=== PATIENT | male | born 1995 | race Two or more races ===

== ENCOUNTER 2017-09-27 09:09 | Emergency (ER) | payer BC ==
[2017-09-27 09:17] VITALS: BP 117/77
[2017-09-27] MEDS ORDERED: KETOROLAC TROMETHAMINE INJ/PF 30 MG/1 ML SDV IM ONE (10:05)
--- NOTE | 2017-09-27 10:10 | ER Document Report ---
HPI - HPI Pain Level: 4 Notes: Patient is a 22-year-old male who presents the ED complaining of a mild headache that begins in the back of his head, and a lump underneath his right jaw 1 day. Patient states that he has not taken any medications for his symptoms. Patient states that overall his headache has improved since this morning. He denies any recent illness. Denies any significant medical history. Denies any drug allergies. Patient denies any smoking or IV drug use. No other concerns or complaints. He still eating and drinking without difficulties. Denies any fever, head injury, neck pain, changes in vision/ speech/mentation/hearing, URI, sore throat, chest pain, palpitations, syncope, cough, shortness of breath, wheeze, dyspnea, abdominal pain, nausea/vomiting/ diarrhea, urinary retention, dysuria, hematuria, back pain, joint pain, or rash. - ROS Notes: REVIEW OF SYSTEMS: CONSTITUTIONAL : Denies fever, chills, or sweats. Denies recent illness. EENT: Denies eye, ear, throat, or mouth pain or symptoms. Denies nasal or sinus congestion or discharge. Denies throat, tongue, or mouth swelling or difficulty swallowing. CARDIOVASCULAR: Denies chest pain. Denies palpitations or racing or irregular heart beat. Denies ankle edema. RESPIRATORY: Denies cough, cold, or chest congestion. Denies shortness of breath, difficulty breathing, or wheezing. GASTROINTESTINAL: Denies abdominal pain or distention. Denies nausea, vomiting , or diarrhea. Denies blood in vomitus, stools, or per rectum. Denies black, tarry stools. Denies constipation. GENITOURINARY: Denies difficulty urinating, painful urination, burning, frequency, blood in urine, or discharge. MUSCULOSKELETAL: Denies back or neck pain or stiffness. Denies joint pain or swelling. SKIN: Denies rash, lesions or sores. NEUROLOGICAL: see hpi.Denies confusion or altered mental status. Denies passing out or loss of consciousness. Denies dizziness or lightheadedness. Denies weakness or paralysis or loss of use of either side. Denies problems with gait or speech. Denies sensory loss, numbness, or tingling. Denies seizures. ALL OTHER SYSTEMS REVIEWED AND NEGATIVE. Dictation was performed using [employer] recognition software - DERM Skin Color: Normal Past Medical History - Social History Smoking Status: Unknown if Ever Smoked Chew tobacco use (# tins/day): No Frequency of alcohol use: Social Drug Abuse: None Family History: Reviewed & Not Pertinent Patient has suicidal ideation: No Patient has homicidal ideation: No Renal/ Medical History: Denies: Hx Peritoneal Dialysis Surgical Hx: Negative Vertical Provider Document - CONSTITUTIONAL Agree With Documented VS: Yes Notes: PHYSICAL EXAMINATION: GENERAL: Well-appearing, well-nourished and in no acute distress. A&Ox4 HEAD: Atraumatic, normocephalic. Non-tender. EYES: Pupils equal round and reactive to light, extraocular movements intact, sclera anicteric, conjunctiva are normal. No raccoon eyes/entrapment ENT: EAC clear b/l. TM's intact b/l without erythema, fluid, or perforation. Nares patent and without discharge. oropharynx clear without exudates. No tonsilar hypertrophy or erythema. Moist mucous membranes. No sinus tenderness. No hemotympanum/CSF discharge. NECK: Normal range of motion, supple with one small mobile minimally tender submandibular lymphadenopathy. No rigidity. No midline tenderness. Spurling negative. LUNGS: Breath sounds clear to auscultation bilaterally and equal. No wheezes rales or rhonchi. HEART: Regular rate and rhythm without murmurs, rubs, gallops. Musculoskeletal: Ext b/l: FROM to passive/active. Strength 5+/5. No deficits noted. No bony tenderness of extremities. Back: FROM to passive/active. Strength 5+/5. No vertebral point tenderness, stepoffs, or deformities. No other bony tenderness or ecchymosis. Extremities: No cyanosis, clubbing, or edema b/l. Peripheral pulses 2+. Capillary refill less than 2 seconds. NEUROLOGICAL: MMSE intact. Cranial nerves grossly intact. Normal speech, normal gait. Normal sensory, motor exams. Reflexes 2+ b/l. ELENA's negative. Pronator drift negative. Heel/child, finger/nose wnl. Walking on heels/toes and heel to toe wnl. PSYCH: Normal mood, normal affect. SKIN: + acne noted to the rt cheek, no superimposed infection (1-2 lesions noted that are approx 3mm). No abscess, streaks, or purulence. - INFECTION CONTROL TRAVEL OUTSIDE OF THE [place] IN LAST 30 DAYS: No - RESPIRATORY O2 Sat by Pulse Oximetry: 97 Course - Re-evaluation Re-evalutation: 09/27/17 10:09 Patient is an afebrile, well-hydrated, 22-year-old male who presents the ED with a headache and submandibular lymph node, suspect association with his acne. Vitals are stable. PE is otherwise unremarkable for any focal neurological deficits. Patient's headache has improved without any need for medication. I will give him a shot of Toradol prior to discharge. I will send him home with a prescription for naproxen that he may take as directed. Advised patient to keep his face clean and he may use [id number] acne medication. He is to monitor the lymph node closely and seek medical attention if it does not go away or if he gets worse. Low suspicion for any acute glaucoma, temporal arteritis, meningitis, intracranial hemorrhage, ischemic stroke, or fracture at this time. Patient is aware that his condition can change from initial presentation and that he needs to monitor symptoms closely for any acute changes. Conservative measures otherwise for symptoms. Recheck with your PCM this week. Return to the ED with any worsening/concerning symptoms otherwise as reviewed in discharge. Patient is in agreement. - Vital Signs Vital signs: Temp Pulse Resp BP Pulse Ox 98.7 F 71 16 117/77 97 09/27/17 09:15 09/27/17 09:15 09/27/17 09:15 09/27/17 09:15 09/27/17 09:15 Discharge - Discharge Clinical Impression: Submandibular lymphadenopathy Headache Qualifiers: Headache type: unspecified Headache chronicity pattern: acute headache Intractability: not intractable Qualified Code(s): R51 - Headache Condition: Stable Disposition: HOME, SELF-CARE Instructions: Headache ([facility]), Toradol Injection ([facility]) Additional Instructions: Rest, Ice Tylenol/ibuprofen as needed Light stretches daily Strength exercises as able Moist heat and massage may help F/u with your PCP in 3-5 days for a recheck Consider consult(s) with Orthopedics/physical therapy for ongoing/worsening symptoms Return to the ED with any worsening symptoms and/or development of fever, headache, changes in vision/speech/mentation, chest pain, palpitations, syncope , shortness of breath, trouble breathing, abdominal pain, n/v/d, blood in stool/ urine, loss of control of bowel/bladder, urinary retention, muscle weakness/ paralysis, saddle anesthesia, numbness/tingling, abscess, red streaks, purulent discharge, or other worsening symptoms that are concerning to you. Prescriptions: Naproxen 500 mg PO BID PRN #30 tablet PRN Reason: Referrals: [facility] [Provider Group] - Follow up as needed [facility] [Provider Group] - Follow up as needed
== END 2017-09-27 10:20 | disposition home or self-care (01) ==
LOC: ER 09:09
DX: R59.1 Generalized enlarged lymph nodes (principal); R51 Headache
CPT/HCPCS: 99283; 96372; J1885

== ENCOUNTER 2017-09-27 14:13 | Emergency (ER) | payer BC ==
--- NOTE | 2017-09-27 15:17 | ER Document Report ---
ED General - General Chief Complaint: Swelling Stated Complaint: SWOLLEN EYELID Time Seen by Provider: 09/27/17 15:12 Notes: Patient states he received a shot here earlier for headache. He states he went home his girlfriend told me had some swelling about the right eye. He denies any pain or any sensations that are abnormal around the right eye. He states he did not notice swelling. Patient states that he has no change of vision. No itching of the eye or discharge or tearing. No trouble breathing or swallowing. He denies any other itching or rashes anywhere on his body. Symptoms are mild. They are constant. Nothing makes it better or worse. TRAVEL OUTSIDE OF THE [place] IN LAST 30 DAYS: No - Related Data Allergies/Adverse Reactions: No Known Allergies Allergy (Verified 09/27/17 14:20) Past Medical History - General Information source: Patient - Social History Smoking Status: Current Every Day Smoker Frequency of alcohol use: Social Drug Abuse: None Family History: Reviewed & Not Pertinent Patient has suicidal ideation: No Patient has homicidal ideation: No Renal/ Medical History: Denies: Hx Peritoneal Dialysis Review of Systems - Review of Systems Constitutional: denies: Chills, Fever EENT: denies: Eye pain, Eye discharge, Blurred vision, Tearing, Double vision Respiratory: denies: Cough, Short of breath Physical Exam - Vital signs Vitals: Temp Pulse Resp BP Pulse Ox 98.6 F 75 18 116/79 99 09/27/17 14:22 09/27/17 14:22 09/27/17 14:22 09/27/17 14:22 09/27/17 14:22 Interpretation: Normal - General General appearance: Appears well, Alert In distress: None - HEENT Head: Normocephalic, Atraumatic Eyes: Other - pt has mild non tender swelling to right lower eyelid Conjunctiva: Normal Cornea: Normal Extraocular movements intact: Yes Eyelashes: Normal Pupils: PERRL Course - Vital Signs Vital signs: Temp Pulse Resp BP Pulse Ox 98.6 F 75 18 116/79 99 09/27/17 14:22 09/27/17 14:22 09/27/17 14:22 09/27/17 14:22 09/27/17 14:22 Discharge - Discharge Clinical Impression: Allergic reaction Qualifiers: Encounter type: initial encounter Qualified Code(s): T78.40XA - Allergy, unspecified, initial encounter Condition: Stable Disposition: HOME, SELF-CARE Instructions: Acute Allergic Reaction ([facility]) Additional Instructions: Please follow-up with your primary care physician as soon as possible for a recheck. Prescriptions: Hydroxyzine Pamoate [Vistaril 25 mg Capsule] 25 mg PO Q8 PRN #10 capsule PRN Reason: Itching Prednisone [Deltasone 20 mg Tablet] 3 tab PO DAILY 3 Days #9 tablet
[2017-09-27 15:31] VITALS: BP 108/56
== END 2017-09-27 15:33 | disposition home or self-care (01) ==
LOC: ER 14:13
DX: T78.40XA Allergy, unspecified, initial encounter (principal); R22.0 Localized swelling, mass and lump, head; X58.XXXA Exposure to other specified factors, initial encounter; F17.200 Nicotine dependence, unspecified, uncomplicated
CPT/HCPCS: 99283

== ENCOUNTER 2017-10-03 17:56 | Emergency (ER) | payer BC ==
[2017-10-03] MEDS ORDERED: DEXAMETHASONE 4 MG TABLET PO ONE (19:39)
[2017-10-03] MEDS ORDERED: OXYCODONE-ACETAMINOPHEN 5-325 MG TABLET PO ONE (19:40)
[2017-10-03] MEDS ORDERED: IBUPROFEN 800 MG TABLET PO ONE (19:40)
[2017-10-03] MEDS ORDERED: CLINDAMYCIN HCL 150 MG CAPSULE PO ONE (19:40)
--- NOTE | 2017-10-03 19:42 | ER Document Report ---
HPI - HPI Patient complains to provider of: Lymph node swelling Onset: Last week Onset/Duration: Persistent Quality of pain: Achy Pain Level: 4 Context: Patient complains of swelling under the right side of his jaw for the past 6 days. Patient was here for this previously and was given steroids. Mother states that the swelling initially went down although then it started to return today after he gone off of the steroid medication. Patient denies any fever. Patient denies any dental pain. Associated Symptoms: Other - Right lymph node swelling. denies: Fever Exacerbated by: Denies Relieved by: Denies Similar symptoms previously: No Recently seen / treated by doctor: Yes - ROS ROS below otherwise negative: Yes Systems Reviewed and Negative: Yes All other systems reviewed and negative - CONSTITUTIONAL Constitutional: DENIES: Fever, Chills - EENT EENT: DENIES: Sore Throat, Ear Pain, Eye problems - NEURO Neurology: DENIES: Headache - CARDIOVASCULAR Cardiovascular: DENIES: Chest pain - RESPIRATORY Respiratory: DENIES: Trouble Breathing, Coughing - GASTROINTESTINAL Gastrointestinal: DENIES: Patient vomiting - MUSCULOSKELETAL Musculoskeletal: DENIES: Extremity pain, Neck Pain - DERM Skin Color: Normal Skin Problems: None Past Medical History - General Information source: Patient, Parent - Social History Smoking Status: Unknown if Ever Smoked Frequency of alcohol use: Occasional Drug Abuse: None Occupation: None Lives with: Family Family History: Reviewed & Not Pertinent Patient has suicidal ideation: No Patient has homicidal ideation: No - Medical History Medical History: Negative Renal/ Medical History: Denies: Hx Peritoneal Dialysis Surgical Hx: Negative Vertical Provider Document - CONSTITUTIONAL Agree With Documented VS: Yes Exam Limitations: No Limitations General Appearance: WD/WN, No Apparent Distress - INFECTION CONTROL TRAVEL OUTSIDE OF THE [place] IN LAST 30 DAYS: No - HEENT HEENT: Atraumatic, Normocephalic. negative: Pharyngeal Exudate, Pharyngeal Tenderness, Pharyngeal Erythema, Tympanic Membrane Red, Tympanic Membrane Bulging Notes: No potential airway compromise. No dental abscess no tender or decayed teeth to right lower jaw. - NECK Neck: Lymphadenopathy-Right - Right submandibular lymphadenopathy - RESPIRATORY Respiratory: Breath Sounds Normal, No Respiratory Distress O2 Sat by Pulse Oximetry: 100 - CARDIOVASCULAR Cardiovascular: Regular Rate, Regular Rhythm - BACK Back: Normal Inspection - MUSCULOSKELETAL/EXTREMETIES Musculoskeletal/Extremeties: MAEW - NEURO Level of Consciousness: Awake, Alert, Appropriate Motor/Sensory: No Motor Deficit - DERM Integumentary: Warm, Dry. negative: Abscess Notes: Patient with resolving nodular acne lesion to right cheek Course - Re-evaluation Re-evalutation: 10/03/17 19:[address] Friend regarding patient presentation and antibiotic choice. Agrees with plan to discharge patient home with clindamycin. Does recommend outpatient follow-up with a surgeon for possible biopsy of lymph node. - Vital Signs Vital signs: Temp Pulse Resp BP Pulse Ox 98.8 F 83 18 117/71 100 10/03/17 18:12 10/03/17 18:12 10/03/17 18:12 10/03/17 18:12 10/03/17 18:12 Discharge - Discharge Clinical Impression: Submandibular lymphadenopathy Condition: Stable Disposition: HOME, SELF-CARE Instructions: Clindamycin ([facility]), Growth or Mass, Pending Workup ([facility]), Oral Narcotic Medication ([facility]), Steroid Medication Additional Instructions: Return immediately for any new or worsening symptoms Followup with your primary care provider, call tomorrow to make a followup appointment Follow-up with a ear nose and throat doctor for further evaluation. You may possibly need a biopsy of this lymph node, to rule out any other problems such as cancer. Prescriptions: Clindamycin HCl [Cleocin Hcl] 300 mg PO QID #28 capsule Naproxen [Naprosyn 250 Nmg Tablet] 1 tab PO BID #14 tablet Oxycodone HCl/Acetaminophen [Percocet 5-325 mg Tablet] 1 tab PO ASDIR PRN #15 tablet PRN Reason: Referrals: [facility] [Provider Group] - Follow up tomorrow
[2017-10-03 20:02] VITALS: BP 128/87
== END 2017-10-03 20:00 | disposition home or self-care (01) ==
LOC: ER 17:56
DX: R59.1 Generalized enlarged lymph nodes (principal)
CPT/HCPCS: 99283

== ENCOUNTER 2018-06-28 12:44 | Emergency (ER) | payer SELFPAY ==
[2018-06-28 13:31] VITALS: BP 116/66
[2018-06-28] MEDS ORDERED: IBUPROFEN 800 MG TABLET PO ONE (13:54)
--- NOTE | 2018-06-28 13:54 | ER Document Report ---
HPI - HPI Patient complains to provider of: Hand injury Onset: Yesterday Onset/Duration: Sudden Quality of pain: Achy Pain Level: 1 Context: Patient states that he punched a window yesterday injuring his right hand. Patient complains of right hand pain and swelling. Patient is right-hand dominant. Patient states that around 11 AM today he had an episode of dizziness which she describes feeling off balance. Patient denies any chest pain headache nausea or vomiting. Patient states that dizziness symptoms only lasted for about 15 minutes and then resolved. Patient presently denies any dizzy complaints at this time. Associated Symptoms: Other - Right hand pain. denies: Chest pain, Headache, Nausea, Vomiting Exacerbated by: Movement Relieved by: Denies Similar symptoms previously: No Recently seen / treated by doctor: No - ROS ROS below otherwise negative: Yes Systems Reviewed and Negative: Yes All other systems reviewed and negative - NEURO Neurology: REPORTS: Dizzinesss / Vertigo. DENIES: Headache, Weakness - MUSCULOSKELETAL Musculoskeletal: REPORTS: Extremity pain, Swelling - DERM Skin Color: Normal Skin Problems: None Past Medical History - General Information source: Patient - Social History Smoking Status: Current Every Day Smoker Chew tobacco use (# tins/day): No Smoking Education Provided: Yes Frequency of alcohol use: Social Drug Abuse: Marijuana Occupation: Foodservice Family History: Reviewed & Not Pertinent Patient has suicidal ideation: No Patient has homicidal ideation: No - Medical History Medical History: Negative Renal/ Medical History: Denies: Hx Peritoneal Dialysis Surgical Hx: Negative Vertical Provider Document - CONSTITUTIONAL Agree With Documented VS: Yes Exam Limitations: No Limitations General Appearance: WD/WN, No Apparent Distress - INFECTION CONTROL TRAVEL OUTSIDE OF THE [place] IN LAST 30 DAYS: No - HEENT HEENT: Atraumatic, Normal ENT Exam, Normocephalic - NECK Neck: Normal Inspection, Supple - RESPIRATORY Respiratory: Breath Sounds Normal, No Respiratory Distress - CARDIOVASCULAR Cardiovascular: Regular Rate, Regular Rhythm, No Murmur Pulses: Normal: Radial - BACK Back: Normal Inspection - MUSCULOSKELETAL/EXTREMETIES Musculoskeletal/Extremeties: SANTOS NEFF - NEURO Level of Consciousness: Awake, Alert, Appropriate Motor/Sensory: No Motor Deficit - DERM Integumentary: Warm, Dry, No Rash Course - Vital Signs Vital signs: Temp Pulse Resp BP Pulse Ox 98.3 F 65 16 116/66 99 06/28/18 13:27 06/28/18 13:27 06/28/18 13:27 06/28/18 13:27 06/28/18 13:27 - Diagnostic Test Radiology reviewed: Image reviewed, Reports reviewed Procedures - Immobilization Right Hand Pre-Proc Neuro Vasc Exam: Normal Immobilizer type: Ulnar Performed by: PCT Post-Proc Neuro Vasc Exam: Normal Alignment checked and good: Yes Discharge - Discharge Clinical Impression: Episode of dizziness Right hand fracture Qualifiers: Encounter type: initial encounter Fracture type: closed Qualified Code(s): S62.91XA - Unspecified fracture of right wrist and hand, initial encounter for closed fracture Condition: Stable Disposition: HOME, SELF-CARE Instructions: Fractured Fifth Metacarpal ([facility]), Ice & Elevation ([facility]), Splint Precautions ([facility]), Vertigo ([facility]) Additional Instructions: Return immediately for any new or worsening symptoms Followup with your primary care provider, call tomorrow to make a followup appointment Follow-up with orthopedics for further evaluation, call today for an appointment Prescriptions: Hydrocodone/Acetaminophen [Romeo 5-325 Tablet] 1 each PO Q4 PRN #12 tablet PRN Reason: Meclizine HCl [Antivert 25 mg Tablet] 25 mg PO ASDIR PRN #15 tablet PRN Reason: Forms: Smoking Cessation Education, Return to Work Referrals: [facility] [Provider Group] - Follow up in 3-5 days
--- NOTE | 2018-06-28 14:35 | RADIOLOGY REPORT (SQ) ---
EXAM DESCRIPTION: HAND RIGHT 3 VIEWS COMPLETED DATE/TIME: 06/28/2018 2:11 pm REASON FOR STUDY: punched window COMPARISON: None. EXAM PARAMETERS: NUMBER OF VIEWS: Three views. TECHNIQUE: AP, lateral and oblique radiographic images acquired of the right hand. LIMITATIONS: None. FINDINGS: MINERALIZATION: Normal. BONES: Comminuted fracture of the head of the 5th metacarpal with about 30 of dorsal angulation. JOINTS: No effusions. SOFT TISSUES: No soft tissue swelling. No foreign body. OTHER: No other significant finding. IMPRESSION: Fracture of the distal 5th metacarpal. TECHNICAL DOCUMENTATION: JOB ID: [id number] [employer]- All Rights Reserved Reading location - IP/workstation name: [email or web address]
--- NOTE | 2018-06-28 18:39 | EKG REPORT ---
SEVERITY:- ABNORMAL ECG - SINUS BRADYCARDIA NONSPECIFIC ST-T INVERSION INFERIOR LEADS. : Confirmed by: Armando Rice MD 28-Jun-2018 18:38:05
== END 2018-06-28 14:58 | disposition home or self-care (01) ==
LOC: ER 12:44
DX: S62.396A Other fracture of fifth metacarpal bone, right hand, initial encounter for closed fracture (principal); W22.8XXA Striking against or struck by other objects, initial encounter; R42 Dizziness and giddiness; F17.200 Nicotine dependence, unspecified, uncomplicated; F12.10 Cannabis abuse, uncomplicated
CPT/HCPCS: 93005; 93010; 99284

== ENCOUNTER 2018-10-08 20:14 | Emergency (ER) | payer SELFPAY ==
[2018-10-08] MEDS ORDERED: ACETAMINOPHEN 325 MG TABLET PO ONE (20:17)
--- NOTE | 2018-10-08 21:02 | RADIOLOGY REPORT (SQ) ---
EXAM DESCRIPTION: HAND LEFT 3 VIEWS COMPLETED DATE/TIME: 10/08/2018 8:42 pm REASON FOR STUDY: laceration COMPARISON: None. EXAM PARAMETERS: NUMBER OF VIEWS: Three views. TECHNIQUE: AP, lateral and oblique radiographic images acquired of the left hand. LIMITATIONS: None. FINDINGS: MINERALIZATION: Normal. BONES: No acute fracture or dislocation. No worrisome bone lesions. JOINTS: No effusions. SOFT TISSUES: No soft tissue swelling. No foreign body. OTHER: No other significant finding. IMPRESSION: No evidence of retained radiopaque foreign body or osseous injury. TECHNICAL DOCUMENTATION: JOB ID: [id number] [employer]- All Rights Reserved Reading location - IP/workstation name: [email or web address]
[2018-10-08] MEDS ORDERED: LIDOCAINE 1% INJ-PF (10 MG/ML) 30 ML SDV INJ ONE (22:11)
--- NOTE | 2018-10-08 22:17 | ER Document Report ---
ED General - General Chief Complaint: Laceration Stated Complaint: HAND INJURY Time Seen by Provider: 10/08/18 21:14 TRAVEL OUTSIDE OF THE [place] IN LAST 30 DAYS: No - HPI Patient complains to provider of: laceration left hand Notes: 23-year-old right-handed male resents to the emergency department for a laceration on his left hand, dorsal aspect sustained after punching a window. - Related Data Allergies/Adverse Reactions: No Known Allergies Allergy (Verified 10/08/18 20:15) Past Medical History - Social History Smoking Status: Current Every Day Smoker Family History: Reviewed & Not Pertinent Patient has suicidal ideation: No Patient has homicidal ideation: No Renal/ Medical History: Denies: Hx Peritoneal Dialysis Physical Exam - Vital signs Vitals: Temp Pulse Resp BP Pulse Ox 98.5 F 74 16 114/81 96 10/08/18 20:19 10/08/18 20:19 10/08/18 20:19 10/08/18 20:19 10/08/18 20:19 Course - Vital Signs Vital signs: Temp Pulse Resp BP Pulse Ox 98.5 F 74 16 114/81 96 10/08/18 20:19 10/08/18 20:19 10/08/18 20:19 10/08/18 20:19 10/08/18 20:19
[2018-10-08] MEDS ORDERED: DIPH/PERTUSS(ACELL)/TETANUS VAC/PF 0.5 ML SYR (>=10YO) IM ONE (22:33)
--- NOTE | 2018-10-08 22:33 | ER Document Report ---
ED General - General Chief Complaint: Laceration Stated Complaint: HAND INJURY Time Seen by Provider: 10/08/18 21:14 Notes: Patient is a 23-year-old male without chronic medical problems who presents with a laceration to his left dorsal hand. This occurred after he became upset and punched a window. The patient describes a stabbing, aching, constant pain over the area of the laceration with global, throbbing, diffuse pain to his left hand. Nothing improves or worsens the pain. No history of similar injuries in the past. He is right-hand dominant. Denies any injuries in the location of his body. He has not seen his primary doctor regarding today's concerns. His tetanus is not up-to-date. TRAVEL OUTSIDE OF THE [place] IN LAST 30 DAYS: No - Related Data Allergies/Adverse Reactions: No Known Allergies Allergy (Verified 10/08/18 20:15) Past Medical History - General Information source: Patient - Social History Smoking Status: Current Every Day Smoker Frequency of alcohol use: None Drug Abuse: None Lives with: Family Family History: Reviewed & Not Pertinent Patient has suicidal ideation: No Patient has homicidal ideation: No Renal/ Medical History: Denies: Hx Peritoneal Dialysis Review of Systems - Review of Systems Notes: Constitutional: Negative for fever. Eyes: Negative for visual changes. ENT: Negative for facial injury Cardiovascular: Negative for chest injury. Respiratory: Negative for shortness of breath. Gastrointestinal: Negative for abdominal injury. Genitourinary: Negative for genital injury Musculoskeletal: Positive for left hand injury Skin: Positive for laceration/abrasions. Neurological: Negative for head injury. Physical Exam - Vital signs Vitals: Temp Pulse Resp BP Pulse Ox 98.5 F 74 16 114/81 96 10/08/18 20:19 10/08/18 20:19 10/08/18 20:19 10/08/18 20:19 10/08/18 20:19 Interpretation: Normal Notes: PHYSICAL EXAMINATION: GENERAL: Well-appearing, well-nourished and in no acute distress. HEAD: Atraumatic, normocephalic. EYES: sclera anicteric, conjunctiva are normal. ENT: Moist mucous membranes. NECK: Normal range of motion LUNGS: Normal work of breathing HEART: 2+ radial pulses bilaterally, capillary refill less than 1 second in all digits of the left hand. EXTREMITIES: Full flexion and extension against resistance at the DIP, PIP and MCP of all digits of the left hand including against resistance. NEUROLOGICAL: No focal neurological deficits. Moves all extremities spontaneously and on command. RMU motor and sensory description is intact bilaterally. PSYCH: Normal mood, normal affect. SKIN: Warm, Dry, normal turgor, 4 cm laceration over the dorsal aspect of the left hand overlying the area between the fourth and fifth metacarpal bones. There is exposure of the extensor tendons underneath. Course - Re-evaluation Re-evalutation: 10/08/18 22:32 Patient presents with a 4 cm laceration over the dorsal ulnar aspect of the left hand with exposure of the extensor tendon. The patient has full flexion and extension of all digits of the left hand at the PIP, DIP and MCP including against resistance. RMU motor and sensory distribution intact. Capillary refill less than 1 second in all digits of the left hand. There is no evidence of a foreign body either on x-ray imaging or direct inspection. The wound was irrigated, closed, cleaned and dressed. Patient's tetanus will be updated. At this time will discharge with return precautions and follow-up recommendations. Verbal discharge instructions given a the bedside and opportunity for questions given. Medication warnings reviewed. Patient is in agreement with this plan and has verbalized understanding of return precautions and the need for follow-up for stitch removal within 1 week. - Vital Signs Vital signs: Temp Pulse Resp BP Pulse Ox 98.8 F 94 18 128/75 H 100 10/08/18 23:27 10/08/18 23:27 10/08/18 23:27 10/08/18 23:27 10/08/18 23:27 - Diagnostic Test Radiology reviewed: Image reviewed, Reports reviewed Radiology results interpreted by me: 10/08/18 22:33 Left hand x-ray: No acute fracture or retained foreign body Procedures - Laceration/Wound Repair Left Hand Wound length (cm): 4 Wound's Depth, Shape: Into muscle, Linear Laceration pre-procedure: Sterile PPE donned Anesthetic type: 1% Lidocaine Volume Anesthetic (mLs): 3 Wound explored: Clean Irrigated w/ Saline (mLs): 500 Wound Debrided: Minimal Wound Repaired With: Sutures Suture Size/Type: 5:0, Prolene Number of Sutures: 7 Layer Closure?: No Post-procedure wound care: Sterile dressing applied Post-procedure NV exam normal: Yes Complications: No Discharge - Discharge Clinical Impression: Laceration of left hand Qualifiers: Encounter type: initial encounter Foreign body presence: without foreign body Qualified Code(s): S61.412A - Laceration without foreign body of left hand, initial encounter Injury of left hand Qualifiers: Encounter type: initial encounter Qualified Code(s): S69.92XA - Unspecified injury of left wrist, hand and finger(s), initial encounter Condition: Good Disposition: HOME, SELF-CARE Additional Instructions: Please return to your primary doctor, the ED, or an urgent care in 7 days for suture removal. Return immediately if you develop spreading redness around the wound, pus from the wound, worsening pain, or a fever of >100.4. Keep the area clean and dry. Wash gently with soap and water twice daily and cover with antibiotic ointment.
[2018-10-09 00:01] VITALS: BP 128/75
== END 2018-10-08 23:27 | disposition home or self-care (01) ==
LOC: ER 20:14
DX: S66.922A Laceration of unspecified muscle, fascia and tendon at wrist and hand level, left hand, initial encounter (principal); S61.412A Laceration without foreign body of left hand, initial encounter; W22.09XA Striking against other stationary object, initial encounter; F17.200 Nicotine dependence, unspecified, uncomplicated; Z23 Encounter for immunization
CPT/HCPCS: 99283; 90471; 73130; 90715; 12002; J3490

== ENCOUNTER 2020-05-31 09:10 | Emergency (ER) | payer SELFPAY ==
[2020-05-31] MEDS ORDERED: IBUPROFEN 600 MG TABLET PO ONE (10:31)
--- NOTE | 2020-05-31 10:31 | ER Document Report ---
ED Extremity Problem, Upper - General Chief Complaint: Shoulder Injury Stated Complaint: SHOULDER PAIN Time Seen by Provider: 05/31/20 10:03 Notes: This 25-year-old male presents to the emergency department with a history of left shoulder pain. Apparently he was wrestling with a coworker yesterday and states that when he got ready for bed last night he noticed a pain in his shoulder, upon awakening this morning he says the pain is worsened and he can barely lift his left shoulder. He denies a prior history of shoulder injury. He has not taken any medications, denies allergies to medications. TRAVEL OUTSIDE OF THE [place] IN LAST 30 DAYS: No - Related Data Allergies/Adverse Reactions: No Known Allergies Allergy (Verified 10/08/18 20:15) Past Medical History - Social History Smoking Status: Unknown if Ever Smoked Family History: Reviewed & Not Pertinent Renal/ Medical History: Denies: Hx Peritoneal Dialysis Review of Systems - Review of Systems Notes: Constitutional: Negative for fever. HENT: Negative for sore throat. Eyes: Negative for visual changes. Cardiovascular: Negative for chest pain. Respiratory: Negative for shortness of breath. Gastrointestinal: Negative for abdominal pain, vomiting or diarrhea. Genitourinary: Negative for dysuria. Musculoskeletal: See HPI Skin: Negative for rash. Neurological: Negative for headaches, weakness or numbness. 10 point ROS negative except as marked above and in HPI. Physical Exam - Vital signs Vitals: Temp Pulse Resp BP Pulse Ox 98.4 F 61 20 109/68 100 05/31/20 09:14 05/31/20 09:14 05/31/20 09:14 05/31/20 09:14 05/31/20 09:14 - Notes Notes: PHYSICAL EXAMINATION: Physical Exam: General: Well-nourished well-developed in no acute distress HEENT: NC/AT, pupils equal round and reactive to light, MM moist,nares clear, oropharynx clear, airway patent Neck: supple, no adenopathy, no masses. Good range of motion Lungs: clear, no wheezing, no rales no rhonchi CVS: Regular rate and rhythm no murmur gallop or rub Abdomen: Soft, active, nontender, no masses, no hepatosplenomegaly Ext: Left shoulder with decreased abduction and decreased extension secondary to tenderness. There is tenderness noted on the anterior shoulder at the glenohumeral joint. AC joint negative and no pain in the posterior shoulder or around the scapula. Neuro: Alert and responsive, moving all 4 extremities on command, cranial nerves intact, no focal findings Skin: Intact no open lesions, no rash PSYCH: Normal mood, normal affect. Course - Re-evaluation Re-evalutation: 05/31/20 11:40 I have reviewed the x-ray and x-ray report, discussed the findings with the patient noting that he likely has a sprain of the left shoulder. He is given prescriptions for anti-inflammatory medications and instructed to begin exercising of the shoulder. Patient acknowledges understanding of this plan and follow-up as needed. - Vital Signs Vital signs: Temp Pulse Resp BP Pulse Ox 98.4 F 61 20 109/68 100 05/31/20 09:14 05/31/20 09:14 05/31/20 09:14 05/31/20 09:14 05/31/20 09:14 - Diagnostic Test Radiology reviewed: Image reviewed, Reports reviewed Radiology results interpreted by me: 05/31/20 11:41 Left shoulder x-ray: No fracture, no dislocation. Discharge - Discharge Clinical Impression: Sprain of left shoulder Qualifiers: Encounter type: initial encounter Shoulder sprain type: unspecified sprain Qualified Code(s): S43.402A - Unspecified sprain of left shoulder joint, initial encounter Condition: Good Disposition: HOME, SELF-CARE Additional Instructions: You were seen in the emergency department today with a sprain injury of the left shoulder. Using a cold compress to the area of pain and using an anti- inflammatory pain medication will help with the discomfort. When your pain level has decreased please begin exercising the left shoulder with range of motion exercises. If your symptoms are not improving it would be important to follow-up with your primary care doctor. HOME CARE INSTRUCTIONS & INFORMATION: Thank you for choosing us for your medical needs. We hope you're satisfied with the care you received. After you leave, you must properly care for your problem and, at the same time, observe its progress. Any condition can change. Some illnesses can change rapidly over hours or days. If your condition worsens, return to the Emergency Department or see your physician promptly. ABOUT YOUR X-RAYS AND EKG'S: If you had an EKG or X-rays taken, they have been read by the Emergency Physician. The X-rays and EKG's will also be read by a Radiologist or [employer]er within 24 hours. If discrepancies are noted, you will be notified by telephone. Please be certain the ED has a correct telephone number & address where you can be reached. Also, realize that some fractures or abnormalities do not show up on initial X-rays. If your symptoms continue, see your physician. ABOUT YOUR LABORATORY TEST: If you had laboratory tests, the results have been reviewed by the Emergency Physician. Some test results (for example cultures) may not be available for several days. You will be contacted if any test result shows you need additional treatment. Please be certain the ED has a correct telephone number and address where you can be reached. ABOUT YOUR MEDICATIONS: You will receive instructions on how to take your medicine on the prescription label you receive. Additional information may be provided by the Pharmacy. If you have questions afterwards, call the ED for clarification or further instructions. Some prescribed medications may cause drowsiness. Do not perform tasks such as driving a car or operating machinery without consulting your Pharmacist. If you feel you need a refill of pain medication, your condition will need re-evaluation. Please do not call for a refill of any medication. ABOUT YOUR SIGNATURE: Signature of this document acknowledges to followin. Understanding that you received emergency treatment and that you may be released before al medical problems are known or treated. Please be certain the ED has a correct phone number & address where you can be reached. 2. Acknowledgement that you will arrange for follow-up care as recommended. 3. Authorization for the Emergency Physician to provide information to your follow-up Physician in order to maximize your care. AT ANY TIME, IF YOUR SYMPTOMS CHANGE SIGNIFICANTLY OR WORSEN OR YOU DEVELOP NEW SYMPTOMS, RETURN TO THE EMERGENCY DEPARTMENT IMMEDIATELY FOR RE-EVALUATION. OUR GOAL IS TO PROVIDE EXCELLENT MEDICAL CARE! WE HOPE THAT WE HAVE MET YOUR EXPECTATIONS DURING YOUR EMERGENCY DEPARTMENT VISIT AND THAT YOU FEEL YOU HAVE RECEIVED EXCELLENT CARE! Prescriptions: Naproxen [Naprosyn] 500 mg PO BID #20 tablet
--- NOTE | 2020-05-31 11:23 | RADIOLOGY REPORT (SQ) ---
EXAM DESCRIPTION: SHOULDER LEFT 2 OR MORE VIEWS IMAGES COMPLETED DATE/TIME: 05/31/2020 11:04 am REASON FOR STUDY: Left shoulder injury COMPARISON: None. NUMBER OF VIEWS: Three views. TECHNIQUE: Internal rotation, external rotation, and Y view images acquired of the left shoulder. LIMITATIONS: None. FINDINGS: MINERALIZATION: Normal. BONES: No acute fracture. No worrisome bone lesions. JOINTS: No dislocation. VISUALIZED LUNGS AND RIBS: No pneumothorax. No rib fracture. SOFT TISSUES: No radiopaque foreign body. OTHER: No other significant finding. IMPRESSION: NEGATIVE STUDY OF THE LEFT SHOULDER. NO RADIOGRAPHIC EVIDENCE OF ACUTE INJURY. TECHNICAL DOCUMENTATION: JOB ID: [id number] 2010 [employer]- All Rights Reserved Reading location - IP/workstation name: [email or web address]
[2020-05-31 11:55] VITALS: BP 113/76
== END 2020-05-31 11:55 | disposition home or self-care (01) ==
LOC: ER 09:10
DX: S43.402A Unspecified sprain of left shoulder joint, initial encounter (principal); M25.512 Pain in left shoulder; X58.XXXA Exposure to other specified factors, initial encounter
CPT/HCPCS: 99283